=== PATIENT | male | born 1955 | race African-American/Black ===

== ENCOUNTER 2021-04-01 12:07 | Emergency (ER) | payer OTHER ==
[~2021-04-01] VITALS: Ht 190.5 cm; Wt 90.7 kg
[2021-04-01] MEDS ORDERED: LIDOCAINE HCL 2% LOCAL 20 ML VIAL INJ ONE (13:00)
== END 2021-04-01 13:57 | disposition home or self-care (01) ==
LOC: ER 12:10
DX: S01.312A Laceration without foreign body of left ear, initial encounter (principal); W45.8XXA Other foreign body or object entering through skin, initial encounter; Y99.0 Civilian activity done for income or pay
CPT/HCPCS: 12014; 99283; J2001

== ENCOUNTER 2021-04-06 12:03 | Emergency (ER) | payer SELFPAY ==
[~2021-04-06] VITALS: Ht 190.5 cm; Wt 90.7 kg
== END 2021-04-06 12:36 | disposition home or self-care (01) ==
LOC: ER 12:21
DX: Z48.02 Encounter for removal of sutures (principal)
CPT/HCPCS: 99283